=== PATIENT | male | born 1990 | race Two or more races ===

== ENCOUNTER 2022-07-12 22:40 | Emergency (ER) | payer MEDICAID, SELFPAY ==
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
[2022-07-12 23:50] VITALS: BP 130/88; PULSE 82; RESP 18; TEMP 36.5; O2SAT 96; BMI 29.0
[2022-07-13 01:59] VITALS: BP 125/76; PULSE 64; RESP 16; TEMP 36.7; O2SAT 98
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
[2022-07-13] MEDS: Acetaminophen 325 MG TABLET 975 MG PO (02:54)
[2022-07-13] MEDS: Oxymetazoline HCl 0.05 % Nasal 15 ML SPRAY 2 SPRAY NOSTRIL-B (02:54)
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
[2022-07-13 04:04] VITALS: BP 117/68; PULSE 58; RESP 17; O2SAT 92
== END 2022-07-13 04:35 | disposition home or self-care (01) ==
PROVIDERS: Emergency Provider Emergency Medicine
DX: H11.32 Conjunctival hemorrhage, left eye (principal); S02.32XA Fracture of orbital floor, left side, initial encounter for closed fracture; S00.12XA Contusion of left eyelid and periocular area, initial encounter; Y04.2XXA Assault by strike against or bumped into by another person, initial encounter; R04.0 Epistaxis; Y93.9 Activity, unspecified; Y92.9 Unspecified place or not applicable; Y99.9 Unspecified external cause status
CPT/HCPCS: 70450; 70486; 99283; 99284